=== PATIENT | male | born 1955 | race Caucasian/White ===

== ENCOUNTER 2020-05-05 10:30 | Emergency (ER) | payer MEDICARE ==
[~2020-05-05 10:30] MED LIST: Nitroglycerin 0.4 MG TAB 1 EACH ONE
[2020-05-05 11:10] LABS: #Basophils 0.1 thou/uL (0.0-0.2); #Eosinphils 0.1 thou/uL (0.0-0.7); #Lymphocytes 0.9 thou/uL (1.20-3.40); #Neutrophils 8.5 thou/uL (1.40-6.50); %Basophils 0.9 % (0.0-1.0); %Lymphocytes 8.8 % (21.0-51.0); %Monocytes 9.2 % (0.0-10.0); %Neutrophils 80.2 % (42.0-75.0); Hemoglobin 11.2 g/dL (14.0-18.0); Mean Corpuscular HGB CONC 32.1 g/dL (32.0-36.0); Mean Corpuscular Hemoglobin 26.5 pg (27.0-31.0); Mean Corpuscular Volume 82.6 fL (78.0-98.0); Mean Platelet Volume 6.3 fL (7.4-10.4); Platelet Count 303 thou/uL (130-400); RBC Distribution Width 12.8 % (11.5-14.5); Red Blood Cell (RBC) Count 4.25 mill/uL (4.70-6.10); White Blood Cell (WBC) Count 10.6 thou/uL (4.8-10.8)
--- NOTE | 2020-05-05 11:20 | RAD ---
Portable frontal chest radiograph: 05/05/2020 COMPARISON: 03/18/2019 HISTORY: Injury FINDINGS: There is no pneumothorax evident. Heart and mediastinal contours are grossly unchanged. Mid line sternotomy wires are present. There is dense opacity in the right base suggesting a combination of right lower lobe and right middl e lobe consolidation/collapse and right pleural fluid. Minimal increased density in the medial left base may signify minimal airspace disease or volume loss. IMPRESSION: Pleural and parenchymal opacity in the lung bases, right greater than left.
[2020-05-05 11:32] LABS: ALT (SGPT) 15 U/L (8-55); AST (SGOT) 17 U/L (5-34); Albumin 3.8 g/dL (3.4-4.8); Alkaline Phosphatase 102 U/L (40-110); Anion Gap 16 mmol/L (10-20); BUN (Urea Nitrogen) 33 mg/dL (8.4-25.7); Bilirubin, Total 0.7 mg/dL (0.2-1.2); Calc. Creatinine Clearance 0 mL/min (70-130); Calcium 8.7 mg/dL (7.8-10.44); Carbon Dioxide 25 mmol/L (23-31); Chloride 103 mmol/L (98-107); Globulin 3.3 g/dL (2.4-3.5); Glucose 155 mg/dL (80-115); Potassium 4.3 mmol/L (3.5-5.1); Protein, Total 7.1 g/dL (5.8-8.1); Sodium 140 mmol/L (136-145)
[2020-05-05] MEDS ORDERED: Furosemide 40 MG/4 ML VIAL ONE ×3 (11:46→21:20)
[2020-05-05] MEDS ORDERED: Nitroglycerin 2% Ointment 1 INCH/1 GM Packet ONE (11:46)
[2020-05-05] MEDS ORDERED: Nitroglycerin 0.4 MG TAB 1 EACH ONE (11:46)
[2020-05-05] MEDS ORDERED: Aspirin Chewable 81 MG TAB ONE (12:30)
[2020-05-05] MEDS ORDERED: Nitroglycerin 50 MG/250 ML BOT 250 ML ONE (12:55)
[2020-05-05] MEDS ORDERED: Morphine 4 MG/ML VIAL ONE (17:05)
[2020-05-05] MEDS ORDERED: Metoprolol Tartrate 50 MG TAB ONE (21:20)
--- NOTE | 2020-05-05 21:42 | RAD ---
Chest one view HISTORY: Dyspnea. COMPARISON: Earlier exam on the same date. FINDINGS: Right cardiac margin remains partially obscured by pleural and parenchymal opacity at the r ight base which also obscures the right hemidiaphragm. Pulmonary vasculature upper limits of normal. Mediastinum midline with aortic calcification and posto perative changes. No evidence of pneumothorax. IMPRESSION : Persistent right pleural fluid and basilar infiltrate. Correlate for right basilar pneumonia. Borderline pulmonary vascular congestion.
[2020-05-06] MEDS ORDERED: Furosemide 40 MG/4 ML VIAL ONE (05:02)
[2020-05-06 06:54] LABS: CKMB 2.3 ng/mL (0-6.6)
[2020-05-06 14:16] LABS: ALT (SGPT) 12 U/L (8-55); AST (SGOT) 25 U/L (5-34); Albumin 3.4 g/dL (3.4-4.8); Alkaline Phosphatase 93 U/L (40-110); Anion Gap 17 mmol/L (10-20); BUN (Urea Nitrogen) 32 mg/dL (8.4-25.7); Calc. Creatinine Clearance 0 mL/min (70-130); Calcium 8.2 mg/dL (7.8-10.44); Carbon Dioxide 23 mmol/L (23-31); Chloride 101 mmol/L (98-107); Globulin 2.8 g/dL (2.4-3.5); Glucose 115 mg/dL (80-115); Potassium 4.1 mmol/L (3.5-5.1); Protein, Total 6.2 g/dL (5.8-8.1); Sodium 137 mmol/L (136-145)
== END 2020-05-06 10:30 | disposition short-term general hospital (02) ==
LOC: MADERS 10:30
DX: I11.0 Hypertensive heart disease with heart failure (principal); I50.9 Heart failure, unspecified; J18.9 Pneumonia, unspecified organism; I25.10 Atherosclerotic heart disease of native coronary artery without angina pectoris; E11.9 Type 2 diabetes mellitus without complications; Z79.84 Long term (current) use of oral hypoglycemic drugs; Z79.899 Other long term (current) drug therapy
CPT/HCPCS: 71045; 80053; 82553; 83880; 84484; 85025; 93005; 94760; 96365; 96366; 96368; 96375; 96376; J1940; J1956; J2270

== ENCOUNTER 2020-06-02 09:11 | Outpatient (CLI) | payer MEDICARE ==
[2020-06-02 09:50] LABS: Anion Gap 14 mmol/L (10-20); BUN (Urea Nitrogen) 44 mg/dL (8.4-25.7); Calc. Creatinine Clearance 0 mL/min (70-130); Calcium 8.9 mg/dL (7.8-10.44); Carbon Dioxide 26 mmol/L (23-31); Chloride 103 mmol/L (98-107); Glucose 116 mg/dL (80-115); Potassium 4.5 mmol/L (3.5-5.1); Sodium 138 mmol/L (136-145)
== END 2020-06-02 09:12 | disposition home or self-care (01) ==
LOC: MADLAB 09:11
PROVIDERS: ATTEND Family Medicine
DX: I10 Essential (primary) hypertension (principal)
CPT/HCPCS: 36415; 80048

== ENCOUNTER 2020-06-02 09:17 | Outpatient (CLI) | payer MEDICARE | END 2020-06-02 09:18 | disposition home or self-care (01) | LOC: MADRAD 09:17 | PROVIDERS: ATTEND Family Medicine | DX: R06.00 Dyspnea, unspecified (principal); J90 Pleural effusion, not elsewhere classified; I10 Essential (primary) hypertension | CPT/HCPCS: 36415; 71046; 80048 ==

== ENCOUNTER 2020-07-20 08:15 | Outpatient (CLI) | payer MEDICARE ==
[2020-07-20 10:46] LABS: ALT (SGPT) 19 U/L (8-55); AST (SGOT) 17 U/L (5-34); Albumin 3.8 g/dL (3.4-4.8); Alkaline Phosphatase 91 U/L (40-110); Anion Gap 16 mmol/L (10-20); BUN (Urea Nitrogen) 63 mg/dL (8.4-25.7); Bilirubin, Total 0.5 mg/dL (0.2-1.2); Calc. Creatinine Clearance 0 mL/min (70-130); Calcium 9.2 mg/dL (7.8-10.44); Carbon Dioxide 28 mmol/L (23-31); Cardiac Risk 6.6 (Less than 4.5); Chloride 93 mmol/L (98-107); Cholesterol 231 mg/dl (< 200 Desired); Globulin 4.1 g/dL (2.4-3.5); Glucose 316 mg/dL (80-115); HDL Cholesterol 35 mg/dL (>60 Neg Risk); LDL Cholesterol, Calculated 156 mg/dL; Potassium 4.2 mmol/L (3.5-5.1); Protein, Total 7.9 g/dL (5.8-8.1); Triglycerides 201 mg/dL (Less than 150)
[2020-07-20 11:07] LABS: Sodium 133 mmol/L (136-145)
== END 2020-07-20 08:16 | disposition home or self-care (01) ==
LOC: MADLAB 08:15
PROVIDERS: ATTEND Nurse Practitioner Family
DX: L03.116 Cellulitis of left lower limb (principal)
CPT/HCPCS: 36415; 80053; 80061

== ENCOUNTER 2024-11-20 08:45 | Outpatient (CLI) | payer OTHER ==
[2024-11-20 09:11] LABS: Anion Gap 15 mmol/L (10-20); BUN (Urea Nitrogen) 50 mg/dL (8.4-25.7); Calc. Creatinine Clearance 0 mL/min (70-130); Calcium 8.8 mg/dL (7.8-10.44); Carbon Dioxide 24 mmol/L (23-31); Chloride 105 mmol/L (98-107); Glucose 225 mg/dL (80-115); Potassium 4.2 mmol/L (3.5-5.1); Sodium 140 mmol/L (136-145)
== END 2024-11-20 08:46 | disposition home or self-care (01) ==
LOC: MADLAB 08:45
PROVIDERS: ATTEND Internal Medicine Nephrology
DX: N18.30 Chronic kidney disease, stage 3 unspecified (principal)
CPT/HCPCS: 36415; 80048

== ENCOUNTER 2024-12-29 08:49 | Outpatient (CLI) | payer OTHER ==
[2024-12-29 09:44] LABS: #Basophils 0.1 thou/uL (0.0-0.2); #Eosinophils 0.2 thou/uL (0.0-0.7); #Lymphocytes 1.0 thou/uL (1.20-3.40); #Monocytes 0.5 thou/uL (0.11-0.59); #Neutrophils 3.8 thou/uL (1.40-6.50); %Basophils 1.7 % (0.0-1.0); %Eosinophils 2.8 % (0.0-10.0); %Lymphocytes 18.6 % (21.0-51.0); %Monocytes 9.6 % (0.0-10.0); %Neutrophils 67.4 % (42.0-75.0); Hematocrit 39.5 % (42.0-52.0); Hemoglobin 12.6 g/dL (14.0-18.0); Mean Corpuscular Hemoglobin 27.0 pg (27.0-31.0); Mean Corpuscular Volume 84.8 fl (78.0-98.0); Platelet Count 279 10x3/uL (130-400); Red Blood Cell (RBC) Count 4.66 mill/uL (4.70-6.10); White Blood Cell (WBC) Count 5.6 10x3/uL (4.8-10.8)
[2024-12-29 09:50] LABS: ALT (SGPT) 12 U/L (Less than 45); AST (SGOT) 16 U/L (11-34); Albumin 4.0 g/dL (3.1-4.5); Alkaline Phosphatase 46 U/L (40-110); Anion Gap 18 mmol/L (10-20); BUN (Urea Nitrogen) 57 mg/dL (8.4-25.7); Bilirubin, Total 0.4 mg/dL (0.3-1.2); Calc. Creatinine Clearance 0 mL/min (70-130); Calcium 9.1 mg/dL (7.8-10.44); Carbon Dioxide 24 mmol/L (23-31); Cardiac Risk 8.0 (Less than 4.5); Chloride 100 mmol/L (98-107); Cholesterol 233 mg/dl (< 200 Desired); Globulin 3.7 g/dL (2.4-3.5); Glucose 301 mg/dL (80-115); HDL Cholesterol 29 mg/dL (>60 Neg Risk); LDL Cholesterol, Calculated 163 mg/dL; Potassium 4.1 mmol/L (3.5-5.1); Sodium 138 mmol/L (136-145); Triglycerides 206 mg/dL (Less than 150)
[2024-12-29 16:35] LABS: Iron 51 ug/dL (65-175); Iron Binding Capacity, Total 331 mcg/dL (261-462)
[2024-12-29 16:57] LABS: PSA-Asymptomatic (SCREENING) 13.213 ng/mL (0-4.0)
[2024-12-29 17:18] LABS: Ferritin 170.51 ng/mL (22-322)
== END 2024-12-29 08:50 | disposition home or self-care (01) ==
LOC: MADLAB 08:49
PROVIDERS: ATTEND Family Medicine
DX: E11.69 Type 2 diabetes mellitus with other specified complication (principal); N40.0 Benign prostatic hyperplasia without lower urinary tract symptoms; D64.9 Anemia, unspecified
CPT/HCPCS: 36415; 80053; 80061; 82043; 82728; 83036; 83540; 83550; 85025; G0103